=== PATIENT | female | born 1960 | race African-American/Black ===

== ENCOUNTER 2020-12-23 10:48 | Emergency (ER) | payer OTHER ==
[~2020-12-23] VITALS: Ht 167.6 cm; Wt 81.7 kg
--- NOTE | ~2020-12-23 | EMS ---
[address] [address] EMS Patient Care Report Name: RICHARD SHELTON [id number] Admission: 12/23/20 Attend Phys: Discharge: 12/23/20 Date of : 58 Report #: [id number] THIS REPORT FOR: //name// Report Transmitted: 12/24/2020 08:21 EMS Care Summary [place], [place]/[facility] Incident [id number] @ 12/23/2020 09:54 Incident Location [address] [place] [address] Patient RICHARD SHELTON Female, 60 Years 1960 Patient Address [address] [place] [address] Patient History Diabetes,Hypertension (HTN),Hyperlipidemia,Breast Cancer,Anxiety, Patient Allergies No known allergies, Patient Medications Ropinirole, Atorvastatin, Fluticasone, Hydroxyzine, Anastrozole, Losartan, Chief Complaint chest pain that travels to back Disposition Transported No Lights/[place] Dispatch Reason Chest Pain (Non-Traumatic) Transported To [facility] Narrative Patient was found sitting at work complaining of chest pain. She explained that she developed chest about 2 hours ago while sitting at her work desk. She informed ems that the patient travels to the left side of her back and it feels like someone is sitting on her. The patient was treated for chest pain and transported to the er where. Transport was uneventful [address] [address] EMS Patient Care Report Name: RICHARD SHELTON [id number] Admission: 12/23/20 Attend Phys: Discharge: 12/23/20 Date of : 58 Report #: [id number] Initial Vitals @10:36P: 98,R: 18,BP: 156/79,Pain: 5/10,GCS: 15,SpO2: 97,Revised Trauma: 12,NE Suspected: false @10:13P: 100,R: 18,BP: 149/71,Pain: 7/10,GCS: 15,Glucose: 168,CO: 0,SpO2: 100,Revised Trauma: 12, Assessments @10:13MENTAL:Person Oriented,Time Oriented,Event Oriented,Place Oriented,SKIN:HEENT:Head/Face: No Abnormalities,Neck/Airway: No Abnormalities,LUNG SOUNDS:General: No Abnormalities,ABDOMEN:General: No Abnormalities,PELVIS//GI:EXTREMITIES:Left Arm: No Abnormalities,Right Arm: No Abnormalities,Left Leg: No Abnormalities,Right Leg: No Abnormalities,PULSE:NEURO:No Abnormalities,@10:36MENTAL:Person Oriented,Time Oriented,Place Oriented,Event Oriented,SKIN:HEENT:Head/Face: No Abnormalities,Neck/Airway: No Abnormalities,LUNG SOUNDS:General: No Abnormalities,ABDOMEN:General: No Abnormalities,PELVIS//GI:EXTREMITIES:PULSE:NEURO:No Abnormalities, Impression Chest Pain / Discomfort Procedures @10:14ALS AssessmentResponse: UnchangedSucceeded@10:27Saline Lock 10cc (20 ga) Site: Hand-LeftResponse: UnchangedSucceeded@10:25Aspirin - 324 Milligrams (mg) - OralResponse: Improved@10:28Nitrostat - 0.4 Milligrams (mg) - SublingualResponse: Improved@10:243-Lead ECGResponse: UnchangedSucceeded@10:2612-Lead ECGResponse: UnchangedSucceeded Timeline 09:51,Call Received 09:51,Dispatch Notified 09:54,Dispatched 09:55,En Route 10:05,On Scene 10:12,At Patient 10:13,BP: 149/71 M,PULSE: 100,RR: 18 R,SPO2: 100 Ox,ETCO2: ,B,PAIN: 7,GCS: 15, 10:14,ALS Assessment,Response: UnchangedSucceeded, 10:24,3-Lead ECG,Response: UnchangedSucceeded, 10:25,Aspirin - 324 Milligrams (mg) - Oral,Response: Improved 10:26,12-Lead ECG,Response: UnchangedSucceeded, 10:27,Saline Lock 10cc 20 ga Site: Hand-Left,Response: UnchangedSucceeded, 10:28,Nitrostat - 0.4 Milligrams (mg) - Sublingual,Response: Improved 10:34,Depart Scene 10:36,BP: 156/79 M,PULSE: 98,RR: 18 R,SPO2: 97 Ox,ETCO2: ,BG: ,PAIN: 5,GCS: 15, [address] [address] EMS Patient Care Report Name: RICHARD SHELTON [facility] [id number] Admission: 12/23/20 Attend Phys: Discharge: 12/23/20 Date of : 58 Report #: [id number] 10:43,At Destination 10:56,Call Closed Disclaimer [email or web address] Copyright 2020 [employer] This EMS Care Summary contains data elements from the applicable legal record (which may be displayed differently). It is designed to provide pertinent information for the following purposes: continuity of care, clinical quality, and state data reporting. The complete legal record is available to ED staff and administrators of the receiving hospital in [employer]'s Patient Tracker. All data is provided "as is."
[2020-12-23] MEDS ORDERED: ARIMIDEX1 MG PO (11:00)
[2020-12-23] MEDS ORDERED: SYNJARDY 12.5-1 EAC1 PO (11:01)
[2020-12-23] MEDS ORDERED: SYNJARDY 12.5-1 EACH PO (11:46)
[2020-12-23] MEDS ORDERED: RELAFEN750 M1 PO (11:46)
[2020-12-23] MEDS ORDERED: COZAAR100 MG PO (11:47)
[2020-12-23] MEDS ORDERED: REQUIP 0.25 M0.25 MG PO (11:48)
[2020-12-23] MEDS ORDERED: FLONASE 0.05%50 MCG NARES (11:49)
[2020-12-23] MEDS ORDERED: LYRICA150 MG PO (11:49)
[2020-12-23] MEDS ORDERED: HYDROXYZINE HCL25 M2 PO (11:50)
--- NOTE | 2020-12-23 12:02 | EKG ---
[address] [address] ELECTROCARDIOGRAM REPORT Name: RICHARD SHELTON Room #: [facility]#: [id number] Admission: Attend Phys: Discharge: Date of : 58 Report #: [id number] [facility] ED Test Date: 2020-12-23 Test Time: 10:54:47 Pat Name: RICHARD SHELTON Department: Room: Gender: F [employer] Operator: MARII : 1960 Requested By: Anahi Rincon Order Number: [id number] MD: Willie Warner Measurements Intervals [place] Rate: 91 P: 59 [place]: 150 QRS: 22 QRSD: 86 T: 54 QT: 355 QTc: 437 Interpretive Statements Sinus rhythm No previous ECG available for comparison Electronically Signed On 12-23-2020 12:02:10 CDT by Willie Warner [email or web address] <ELECTRONICALLY SIGNED> By: Willie Warner MD, [facility] 12/23/20 1202 1054 1054 Willie Warner MD, FAC /EPI
[2020-12-23 12:14] LABS: HEMATOCRIT 36.7 % (37.0-47.0); HEMOGLOBIN 12.1 gm/dL (12.0-15.0); MCH 28.5 pg (26.0-34.0); MCHC 32.9 g/dL (28.0-37.0); MCV 86.5 fL (80.0-100.0); RBC 4.25 mil/uL (4.20-5.00); RDW 14.2 % (10.5-14.5); WBC 7.5 thou/uL (4.0-11.0)
[2020-12-23 12:17] LABS: ANION GAP 12 mmol/L (7-16); BUN 17 mg/dL (7-18); CALCIUM 9.1 mg/dL (8.5-10.1); CHLORIDE 106 mmol/L (98-107); CO2 24 mmol/L (21-32); CREATININE 0.9 mg/dL (0.6-1.0); GLUCOSE 150 mg/dL (74-106); SODIUM 142 mmol/L (136-145)
[2020-12-23 12:27] LABS: ALBUMIN 3.9 g/dL (3.4-5.0); LIPASE 107 U/L (73-393); SGOT 20 U/L (15-37); SGPT 34 U/L (14-59); TOTAL BILIRUBIN 0.5 mg/dL (0.2-1.0); TROPONIN-I <0.06 ng/mL (<0.06)
[2020-12-23] MEDS ORDERED: AZITHROMYCIN 2250 MG PO (18:50)
[2020-12-23 18:56] VITALS: BP 151/84
== END 2020-12-23 18:57 | disposition home or self-care (01) ==
LOC: ER 10:48
PROVIDERS: Student in an Organized Health Care Education/Training Program
DX: R07.89 Other chest pain (principal); R10.10 Upper abdominal pain, unspecified; I10 Essential (primary) hypertension; E78.00 Pure hypercholesterolemia, unspecified; E11.9 Type 2 diabetes mellitus without complications; Z85.3 Personal history of malignant neoplasm of breast